=== PATIENT | female | born 1985 | race African-American/Black ===

== ENCOUNTER 2020-05-29 04:37 | Emergency (ER) | payer OTHER ==
[~2020-05-29] VITALS: Ht 162.6 cm; Wt 72.6 kg
[2020-05-29 05:05] VITALS: BP 128/80
--- NOTE | 2020-05-29 05:05 | NUR ---
ED Nurse Note: Patient walked into ED for c/o STD symptoms such as foul odor. She states she is concerned due to a previous sexual partner not talking to her making her believe she has an STD. She is also reporting vaginal yeast symptoms, but denies vaginal exam. She specifically requested diflucan and penicillin. AAOX4. Respiratory status is normal and even.
--- NOTE | 2020-05-29 05:05 | Emergency Room Report ---
History of Present Illness General Chief Complaint: Female Urogenital Problems Source: Patient Present Illness HPI Patient is a 35-year-old female past medical history of STDs in the past who presents to the ER complaining of foul-smelling vaginal discharge and itchiness for 3 weeks. She states that her previous sexual partner she is not communicating with so she is worried that he might have given her an STD. Patient states that she has had gonorrhea and chlamydia in the past which was treated. She also states that she feels like she is a yeast infection because she has vaginal itching. She denies any abdominal pain, nausea or vomiting. She denies any fever or chills. 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: No Patient History Last Menstrual Period: 05/29/20 Now: No Reviewed Nursing Documentation: PMH: Agreed; PSxH: Agreed Nursing Documentation-PMH Past Medical History: No History, Except For Hx Seizures: Yes Review of Systems All Other Systems: negative except mentioned in HPI Physical Exam Vital Signs Date Time Temp Pulse Resp B/P (MAP) Pulse Ox O2 Delivery O2 Flow Rate FiO2 05/29/20 04:41 97.9 74 13 128/80 (96) 95 Room Air Sp02 EP Interpretation: reviewed, normal General Appearance: no apparent distress, alert, GCS 15, non-toxic Head: normocephalic, atraumatic Eyes: bilateral eye normal inspection, bilateral eye PERRL ENT: hearing grossly normal, normal pharynx, no angioedema, normal voice Neck: full range of motion, supple/symm/no masses Respiratory: chest non-tender, lungs clear, normal breath sounds, speaking full sentences Cardiovascular #1: regular rate, rhythm, no edema Gastrointestinal: non tender, soft, no guarding, no rebound Rectal: deferred Genitourinary: no CVA tenderness Musculoskeletal: normal range of motion 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 Stewart, have assessed and agrees that patient is medically stable for discharge to an outpatient disposition. Diagnostic Impression: Primary Impression: STD (female) ER Course Patient requesting empiric treatment for STDs. Patient has been given 1 g of azithromycin as well as 250 mg of IV Rocephin. Patient also complains of feeling like she has vaginal candidiasis. I have given her 150 mg of oral fluconazole. After discussing risks and benefits of further diagnostics, treatment plans, as well as indications for and risks of admission, the patient is agreeable to being discharged home. I have explained that their evaluation and treatment in the emergency department today is an important step towards them achieving better health but that their evaluation today is not intended to replace further evaluation and treatment by a physician in their local clinic. I have explained that while the current findings suggest no immediate life threatening emergency they will require further evaluation and treatment by a physician of their choice in their area. They understand that it will be necessary for them to review the final reports of their ED visit with their clinic physician. We have reviewed indications for return to the Emergency Department. I have explained that additional time may need to pass and/or additional testing as an outpatient may be necessary before a definitive diagnosis can be made. They tell me they are willing to follow up as instructed within the timeframe I recommend. They appear to understand what we discussed. Additionally they understand that if they are unable to be seen by an outpatient physician they are welcome, and in fact should, return to the Emergency Department for a repeat evaluation. The patient is stable at time of discharge. Laboratory Tests Test 05/29/20 04:50 Urine Color Pale yellow Urine Appearance Clear Urine pH 6 (4.5-8.0) Urine Specific Maxwell 1.025 (1.005-1.035) Urine Protein 1+ (NEGATIVE) H Urine Glucose (UA) Negative (NEGATIVE) Urine Ketones Negative (NEGATIVE) Urine Blood 5+ (NEGATIVE) H Urine Nitrite Negative (NEGATIVE) Urine Bilirubin Negative (NEGATIVE) Urine Urobilinogen Normal MG/DL (0.0-1.0) Urine Leukocyte Esterase Negative (NEGATIVE) Urine RBC Tntc /HPF (0 - 2) H Urine WBC 5-10 /HPF (0 - 2) H Urine Squamous Epithelial Cells Moderate /LPF (NONE/OCC) H Urine Bacteria Few /HPF (NONE) Urine Opiates Screen Pending Urine Barbiturates Screen Pending Phencyclidine (PCP) Screen Pending Urine Amphetamines Screen Pending Urine Benzodiazepines Screen Pending Urine Cocaine Screen Pending Urine Marijuana (THC) Screen Pending Last Vital Signs Date Time Temp Pulse Resp B/P (MAP) Pulse Ox O2 Delivery O2 Flow Rate FiO2 05/29/20 04:41 97.9 74 13 128/80 (96) 95 Room Air Disposition: HOME, SELF-CARE Condition: Stable Scripts No Active Prescriptions or Reported Meds Referrals: [facility]ERR[facility] (PCP) Additional Instructions: The patient was provided with discharge instructions, notified to follow-up with a primary care doctor and or specialist in the next 24-48 hours, and to return to the ED if they have worsening of their symptoms. Please note that this report is being documented using [facility] technology. This can lead to erroneous entry secondary to incorrect interpretation by the dictating instrument. Arianna Stewart M.D. May 29, 2020 05:05
[2020-05-29] MEDS ORDERED: Lidocaine 1% MPF 10mg/ml 5ml INJ ONE (05:15)
[2020-05-29] MEDS ORDERED: Fluconazole 150mg tab ORAL ONE (05:15)
[2020-05-29] MEDS ORDERED: Azithromycin 250mg tab ORAL ONE (05:15)
[2020-05-29 05:30] LABS: APPEARANCE,URINE CLEAR; BILIRUBIN, URINE NEGATIVE (NEGATIVE); COLOR,URINE PALE YELLOW; GLUCOSE, URINE (UA) NEGATIVE (NEGATIVE); KETONES,URINE NEGATIVE (NEGATIVE); LEUKOCYTE ESTERASE ,URINE NEGATIVE (NEGATIVE); NITRITE,URINE NEGATIVE (NEGATIVE); PH,URINE 6 (4.5-8.0); PROTEIN,URINE 1+ (NEGATIVE); UROBILINOGEN,URINE NORMAL MG/DL (0.0-1.0)
[2020-05-29 06:50] VITALS: BP 125/71
--- NOTE | 2020-05-29 06:50 | NUR ---
Homeless Discharge: Patient is being discharged from medical care. Awake, alert and oriented x3. After care instructions, including referral to community resources were given. Patient verbalized understanding of After care instructions; at this time patient does not request medications, equipment or placement. Patient signed patient consent in the medical record for patient destination upon discharge. Patient ambulated out with all personal belongings with steady gait.
== END 2020-05-29 06:50 | disposition other institution (70) ==
LOC: EMR 04:58
DX: A64 Unspecified sexually transmitted disease (principal); G40.909 Epilepsy, unspecified, not intractable, without status epilepticus; Z88.5 Allergy status to narcotic agent; Z88.6 Allergy status to analgesic agent
CPT/HCPCS: 80307; 81003; 96372; J0696; Q0144; Z7502; 99283